=== PATIENT | male | born 1975 | race Caucasian/White ===

== ENCOUNTER 2020-02-11 09:11 | Inpatient (IN) | payer OTHER ==
--- NOTE | 2020-02-09 11:16 | Pre-op HX & Phy Repo 2 SIG ---
DATE OF ADMISSION: 02/11/2020 SCHEDULED TO BE ADMITTED: February 11, 2020. 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 The patient had a past history of ulcerative colitis in May 2013 in [place]. He underwent proctocolectomy with creation of a Sood continent intestinal reservoir. He required revision of the Sood pouch valve and access segment in 2017 because of difficulty with intubation as well as incontinence. For the past year and now getting rapidly progressively worse. The patient is barely able to get his smallest catheter 24-Sammarinese into his pouch instead of his usual 30-Sammarinese catheter. He has bleeding and pain during intubation. He has severe stoma stenosis with hypertrophic scar around the stoma. He also complains of intermittent incontinence of stool. He is scheduled to be admitted, undergo diagnostic Sood pouch endoscopy, bowel prep with intravenous hydration, and preparation for surgery. PAST MEDICAL HISTORY: MEDICATIONS: Lisinopril for hypertension. ALLERGIES: None. OPERATIONS: In addition to the above, he underwent repair of incisional hernia in 2017 and cholecystectomy in 2019. PHYSICAL EXAMINATION: VITAL SIGNS: The patient is 5 feet 7 inches, 185 pounds. [place] and will be examined upon arrival and dictated separately. IMPRESSION: 1. 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 2. History of ulcerative colitis. 3. Hypertension. 4. STATUS POST MULTIPLE ABDOMINAL OPERATIONS: 4.1. Proctocolectomy and creation of Sood continent ileostomy May 2013 in [place]. 4.2. Repair of incisional hernia in 2017 out of state. 4.3. Laparotomy with revision of Sood pouch valve and access segment and stoma in [place] in March 2017. 4.4. Cholecystectomy in 2019 out of state. PLAN: The patient will be admitted and undergo insertion of a dual lumen PICC line for stable venous access prior to this extensive reoperative abdominal surgery. He will undergo pouch endoscopy not requiring anesthesia or sedation to better determine the extent of the surgery. Since he is having incontinence, it is likely there is either a valve fistula or a partially slipped valve in addition to the severe stoma stenosis. The patient will undergo bowel prep with concurrent intravenous hydration and an indwelling Sood pouch catheter will be placed to continuous drainage with antibiotic bowel prep, IV antibiotics started overnight prior to surgery, and preoperative subcutaneous heparin. I have had a full discussion which I will have again in person in detail with the patient when he arrives from out of state about the nature of this problem, the nature of the surgery, indications, alternatives, options, and risks. I have discussed the general risks of surgery including bleeding, infection, adhesions that could lead to bowel obstruction, hernia, the development of deep vein thrombosis despite prophylaxis, possible need for gastrostomy, etc. I have discussed the specific risks of the Sood pouch procedure including recurrent problems with function or structure of the pouch. I have discussed the potential that he need to have this pouch resected and a new pouch created or conventional ileostomy requiring wearing an external appliance. Herber Guerrier M.D. DR: Carmine JOB#: [id number] CC:
[~2020-02-11] VITALS: Ht 170.2 cm; Wt 86.2 kg
--- NOTE | 2020-02-11 09:25 | NUR ---
NURSE NOTES: Patient was admitted to room 304-2 ambulating in stable condition. Pt is a/o x4. Unit orientation was given. Verified belongings list and pt signed. Provided call light. Bed in lowest position, call light within reach. Will continue to monitor.
[2020-02-11 09:26] VITALS: BP 158/105
[2020-02-11] MEDS ORDERED: LISINOPRIL20 MG ORAL (10:00)
[2020-02-11] MEDS ORDERED: PERCOCET 10-321 EAC1 ORAL (10:00)
[2020-02-11] MEDS ORDERED: NEXIUM20 MG ORAL (10:00)
[2020-02-11] MEDS ORDERED: ZOLOFT100 MG ORAL (10:00)
[2020-02-11] MEDS ORDERED: Lidocaine 1% Plain 30 ml INJ PRN (10:15)
[2020-02-11] MEDS ORDERED: Heparin1,000 units/500ml Premix(Conc:2 units/ml) IV PRN (10:15)
--- NOTE | 2020-02-11 10:26 | Diagnostic Imaging Report ---
Procedure: XRAY Chest 1v Reason for study: Cough. Comparison films: None. FINDINGS: A single one view chest is obtained. Vascularity is normal. The lung cervantes are clear bilaterally. Cardiac and mediastinal silhouette are within normal limits. CP angles are sharp. The bony thorax appear unremarkable. IMPRESSION: NO ACUTE CARDIOPULMONARY DISEASE.
[2020-02-11 11:04] LABS: APPEARANCE,URINE CLEAR; BILIRUBIN, URINE NEGATIVE (NEGATIVE); GLUCOSE, URINE (UA) NEGATIVE (NEGATIVE); KETONES,URINE NEGATIVE (NEGATIVE); LEUKOCYTE ESTERASE ,URINE NEGATIVE (NEGATIVE); NITRITE,URINE NEGATIVE (NEGATIVE); PH,URINE 5 (4.5-8.0); PROTEIN,URINE 2+ (NEGATIVE); UROBILINOGEN,URINE NORMAL MG/DL (0.0-1.0)
[2020-02-11 11:07] LABS: COLOR,URINE PALE YELLOW
--- NOTE | 2020-02-11 11:21 | NUR ---
NURSE NOTES: Dr. Guerrier ordered continue all home meds. Noted and carried out.
--- NOTE | 2020-02-11 11:23 | Pre-Procedure Note/Attestation ---
Pre-Procedure Note/Attestation Complete Prior to Procedure Planned Procedure: not applicable Procedure Narrative: Sood continent ileostomy pouch endoscopy Indications for Procedure Pre-Operative Diagnosis: malfunctioning Sood continent ileostomy and stoma stenosis Attestation I attest that I discussed the nature of the procedure; its benefits; risks and complications; and alternatives (and the risks and benefits of such alternatives), prior to the procedure, with the patient (or the patient's legal senior account representative). I attest that, if there was a reasonable possibility of needing a blood transfusion, the patient (or the patient's legal senior account representative) was given the [facility] standardized written summary, pursuant to the Moses Coburn Blood Safety Act ([place] Health and Safety Code # 1645, as amended). I attest that I re-evaluated the patient just prior to the surgery and that there has been no change in the patient's H&P, except as documented below: Herber Guerrier MD Feb 11, 2020 11:23
[2020-02-11 12:00] VITALS: BP 149/93
[2020-02-11] MEDS: Neomycin Sulfate 500mg Tab ORAL SCH ×3 (12:07→20:53)
[2020-02-11 12:26] LABS: EOSINOPHILS % (AUTO) 0.5 % (0.0-3.0); HEMATOCRIT 31.7 % (42.0-52.0); HEMOGLOBIN 10.2 G/DL (14.2-18.0); LYMPHOCYTES % (AUTO) 25.4 % (20.0-45.0); MEAN CORPUSCULAR VOLUME 73 FL (80-99); MONOCYTES % (AUTO) 7.9 % (1.0-10.0); NEUTROPHILS % (AUTO) 65.2 % (45.0-75.0); PLATELET COUNT 397 K/UL (150-450); RED BLOOD COUNT 4.33 M/UL (4.70-6.10); RED CELL DISTRIBUTION WIDTH 17.5 % (11.6-14.8); WHITE BLOOD COUNT 13.8 K/UL (4.8-10.8)
[2020-02-11 12:34] LABS: ANION GAP 7 mmol/L (5-15); BLOOD UREA NITROGEN 24 mg/dL (7-18); CALCIUM 8.7 MG/DL (8.5-10.1); CARBON DIOXIDE 27 MMOL/L (21-32); CHLORIDE 105 MMOL/L (98-107); POTASSIUM 3.6 MMOL/L (3.5-5.1); SODIUM 139 MMOL/L (136-145)
--- NOTE | 2020-02-11 12:40 | NUR ---
NURSE NOTES: Patient is off the unit for Pouch endoscopy and PICC line insertion in stable condition.
[2020-02-11 12:50] LABS: ALANINE AMINOTRANSFERASE 40 U/L (12-78); ALBUMIN 3.7 G/DL (3.4-5.0); ALKALINE PHOSPHATASE 69 U/L (46-116); ASPARTATE AMINO TRANSFERASE 15 U/L (15-37); BILIRUBIN,TOTAL 0.3 MG/DL (0.2-1.0); FERRITIN 5 NG/ML (8-388)
--- NOTE | 2020-02-11 13:33 | Brief Operative Note ---
Immediate Post Operative Note Operative Note Pre-op Diagnosis: malfunctioning Sood continent ileostomy and stoma stenosis Procedure: Sood continent ileostomy pouch endoscopy Post-op Diagnosis: stoma stricture Post-op Diagnosis: same as pre-op Findings: consistent w/pre-op dx studies Surgeon: greg Anesthesia: other - none Specimen: none Complications: none Condition: stable Fluids: none Estimated Blood Loss: none Drains: other - 26 Fr Clifton to Sood pouch Implant(s) used?: No Herber Guerrier MD Feb 11, 2020 13:33
[2020-02-11 13:34] LABS: % IRON SATURATION 3 % (15-50); IRON 15 ug/dL (50-175); TOTAL IRON BINDING CAPACITY 507 ug/dL (250-450)
--- NOTE | 2020-02-11 14:09 | Pre-Procedure Note/Attestation ---
Pre-Procedure Note/Attestation Complete Prior to Procedure Planned Procedure: not applicable Procedure Narrative: PICC line placement Indications for Procedure Pre-Operative Diagnosis: Need IV access Attestation procedure discussed with patient. informed consent obtained Luis Armando Austin M.D. Feb 11, 2020 14:09
--- NOTE | 2020-02-11 14:15 | NUR ---
NURSE NOTES: Pt came back after pouch endoscopy and PICC line insertion in stable condition via hospital bed.
--- NOTE | 2020-02-11 14:55 | Diagnostic Imaging Report ---
Indications: Needs long-term IV access Technique: Ultrasound confirms patent compressible left brachial vein. Total sterile technique, including sterile probe cover and sterile gel, hat, mask,, sterile gown, large sterile drape, and preparation with 2% chlorhexidine utilized. Local anesthesia with 1% lidocaine. Under real-time ultrasound guidance, puncture left brachial vein using 21-gauge needle, documented and archived, passage 0.018 guidewire under direct fluoroscopy, which was used to determine appropriate catheter length, exchange for 4.5 Zimbabwean peel-away sheath. 4 Zimbabwean dual-lumen power PICC cut to appropriate length (43 cm) and it was inserted through the peel-away sheath. Peel-away sheath. Some difficulty was encountered advancing the catheter. Therefore limited venogram was performed imaging patency of the vein however a tortuous course. The catheter was then manipulated across the tortuosity. Tip of the catheter was advanced and guidewire was removed. Catheter fixed to the skin. Both catheter ports aspirated and flushed. Patient tolerated procedure well, without immediate complication. Digital radiograph documents satisfactory catheter tip position, at the cavoatrial junction. Total fluoroscopy time 148.1 seconds. Total fluoroscopy dose 15.52 mGy. To number fluoroscopic runs/images obtained: 2 Impression: Successful placement of PICC under sonographic and fluoroscopic guidance, as described above. Catheter cleared for use.
--- NOTE | 2020-02-11 15:18 | NUR ---
RADIOLOGY NOTE: RIGHT UPPER EXTREMITY PICC LINE PLACEMENT BY DR. VILLAFUERTE
[2020-02-11 16:00] VITALS: BP 150/88
--- NOTE | 2020-02-11 17:15 | Procedure Note ---
DATE OF PROCEDURE: 02/11/2020 ENDOSCOPY PROCEDURE REPORT ENDOSCOPIST: Herber Guerrier MD. ANESTHESIA: None. SEDATION: None. PRE-ENDOSCOPY DIAGNOSES: 1. 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 2. History of ulcerative colitis. 3. Status post proctocolectomy with Sood continent ileostomy in 2013 in [place], followed [place] revision [place] valve[place]. POST-ENDOSCOPY DIAGNOSIS: 1. 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 2. History of ulcerative colitis. 3. Status post proctocolectomy with Sood continent ileostomy in 2013 in [place], followed by revision of valve, access [place]. ENDOSCOPY PERFORMED: Sood continent ileostomy pouch endoscopy. DESCRIPTION OF PROCEDURE: The patient was positioned supine in the GI lab without any anesthesia or sedation given or required. The stoma was very stenotic, but I was able to manipulate the GIF-P140 endoscope into the stoma and access segment. The access segment is slightly redundant, but quite straight to the pouch with the distance from the stoma orifice to the tip of the the valve approximately 12 cm, which in this patient should be 8 or 9 cm. The pouch is distensible. The pouch looks completely normal without any inflammation or ulcerations. Retroflexed views revealed a somewhat foreshortened nipple valve, but the patient is not having any significant incontinence. He only has difficulty intubating at the orifice of the stoma. Withdrawal views confirmed the above findings. After removing the endoscope, I was able to readily insert a 26-Maori Clifton through the stoma and into the pouch decompressed. It was secured with tape to the skin and connected to a gravity drainage bag with a dressing over the stoma. The patient will be prepared for surgical revision of his stenotic Sood continent ileostomy stoma in the morning. He tolerated the endoscopy well. Herber Guerrier M.D. DR: NATHANIEL JOB#: [id number] CC:
--- NOTE | 2020-02-11 17:45 | History and Physical Report ---
DATE OF ADMISSION: 02/11/2020 ADMISSION HISTORY AND PHYSICAL PREOPERATIVE The patient has now arrived from out of state. Please see previously dictated history. PHYSICAL EXAMINATION: GENERAL: He is well developed, well nourished, 5 feet 7 inches, 185 pounds. VITAL SIGNS: Within normal limits. HEENT: Within normal limits. LUNGS: Clear. HEART: Regular rhythm. BREASTS: Without masses. ABDOMEN: Soft, slightly obese. There is a long midline scar. The stoma of his Sood continent ileostomy is low in the right lower quadrant and very stenotic. There is no evidence of incisional or parastomal hernia. GENITALIA: Within normal limits. RECTAL: Status post proctectomy. EXTREMITIES: Without edema. NEUROLOGIC: Physiologic. ADDITIONAL INFORMATION: Laboratory studies revealed the patient is anemic with a hemoglobin of 10.2. His serum iron is only 15. His serum ferritin is 5. His albumin is 3.7. IMPRESSION: 1. 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 2. Hypertension. 3. History of ulcerative colitis. 4. Status post multiple abdominal operations. 4.1. Proctocolectomy and creation of Sood continent ileostomy performed in [place] in May 2013. 4.2. Repair of incisional hernia in [place] in 2016. 4.3. Laparotomy with revision of Sood continent ileostomy valve and access segment and stoma performed in [place] in March 2017. 4.4. Laparoscopic cholecystectomy in 2019 in [place]. PLAN: The patient underwent endoscopy of his Sood continent ileostomy, which reveals normal mucosa, a somewhat deformed nipple valve, and some redundancy of the access segment without angulations. There is a severe recurrent stoma stricture. The patient will undergo insertion of a dual lumen PICC line. An indwelling Sood pouch catheter has been placed to continuous gravity drainage. He will receive intravenous Venofer. He will receive preoperative intravenous antibiotics and preoperative subcutaneous heparin. I have had a full discussion with the patient regarding the nature of his condition and the need for revision of his stoma in depth. I informed him that since he is not having any significant incontinence, only a small amount of yellowish material mixed with mucus coming out of the stoma under his stoma covering, but no evidence of incontinence of flatus or gross incontinence, and because his only difficulty intubating is with the stoma orifice and not further in, I have recommended that we perform a revision of the stoma in depth and hopefully a full laparotomy can be avoided. I have discussed the risks including bleeding, infection, recurrent stenosis, need for additional procedures regarding his pouch, neuritis, or neuralgia from dissecting in the right groin area, etc. All questions have been answered. He understands and agrees to proceed. Herber Guerrier M.D. DR: LAVERNE JOB#: [id number] CC:
[2020-02-11] MEDS: D5 1/2NS w/KCl 20mEq 1,000 ML IV SCH (18:12)
--- NOTE | 2020-02-11 19:17 | NUR ---
NURSE HAND-OFF: Important Events on Shift:Admission Patient Status: stable Diet: clear liquid Pending Orders: n/a Pending Results/Labs:n/a Pending MD notification:n/a Latest Vital Signs: Temperature 97.2 , Pulse 65 , B/P 150 /88 , Respiratory Rate 16 , O2 SAT 99 , , O2 Flow Rate . Vital Sign Comment: stable Latest Wagoner Fall Score: 35 Fall Risk: Medium Risk Safety Measures: Call light Within Reach, Bed Alarm Zone 1, Side Rails Side Rails x2, Bed position Low and Locked. Fall Precautions: Patient Fall Education Report given to JESSICA Soto.
--- NOTE | 2020-02-11 19:53 | NUR ---
NURSE NOTES: Received report from Walter LOPEZ. Patient in bed requesting for pain medication, ileo draining well to gravity. PICC line running well, intact. Reminded patient to be NPO at midnight for procedure tomorrow.
[2020-02-11 20:00] VITALS: BP 154/101
[2020-02-11] MEDS: Dyna-Hex 2% Top Sol 2oz TOPIC SCH (20:53)
[2020-02-11] MEDS: Zolpidem 5mg tab ORAL PRN (21:24)
[2020-02-11] MEDS: Venofer 200mg in NS 110ml IVPB SCH (21:25)
[2020-02-12] VITALS (16 sets, daily range): BP systolic 103–156; BP diastolic 66–111
[2020-02-12] MEDS: Ampicillin/Sulbactam Sod 3 GM in NS 110 ML IVPB SCH ×5 (00:15→23:16)
[2020-02-12] MEDS: D5 1/2NS w/KCl 20mEq 1,000 ML IV SCH (03:15)
[2020-02-12] MEDS ORDERED: Heparin 5000 units/ml inj SUBQ SCH (05:30)
--- NOTE | 2020-02-12 06:36 | Anethesia Preoperative Eval ---
Anesthesia Pre-op PMH/ROS General Date of Evaluation: Feb 12, 2020 Time of Evaluation: 06:21 Anesthesiologist: Kamila ASA Score: ASA 3 Mallampati Score Class I : Soft palate, uvula, fauces, pillars visible Class II: Soft palate, uvula, fauces visible Class III: Soft palate, base of uvula visible Class IV: Only hard plate visible Mallampati Classification: Class II Surgeon: Chey Diagnosis: Malfunctioning Sood Continent Ileostomy Surgical Procedure: Revision of Sood Continent Ileostomy Anesthesia History: none Family History: no anesthesia problems Allergies: Coded Allergies: NO KNOWN ALLERGIES (Verified Allergy, Unknown, 02/11/20) Medications: see eMAR Patient NPO?: Yes Past Medical History Cardiovascular: Reports: HTN Gastrointestinal/Genitourinary: Reports: other - Colitis Hematology/Immune: Reports: anemia Other: obesity - BMI 31 PSxH Narrative: 1. 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 2. History of ulcerative colitis. 3. Hypertension. 4. STATUS POST MULTIPLE ABDOMINAL OPERATIONS: 4.1. Proctocolectomy and creation of Sood continent ileostomy May 2013 in [place]. 4.2. Repair of incisional hernia [place] of state. 4.3. Laparotomy with revision of Sood pouch valve and access segment and stoma in [place] in March 2017. 4.4. Cholecystectomy [place] of state. Anesthesia Pre-op Phys. Exam Physician Exam Last Vital Signs Date Time Temp Pulse Resp B/P (MAP) Pulse Ox O2 Delivery O2 Flow Rate FiO2 02/12/20 04:00 98.0 61 18 131/78 (95) 97 02/11/20 21:00 Room Air Constitutional: NAD Neurologic: CN 2-12 intact Cardiovascular: RRR Respiratory: CTA Gastrointestinal: S/NT/ND Airway Exam Mallampati Score: Class II MO: full ROM: full Teeth: missing, intact Anesthesia Pre-op A/P Labs Hematology Test 02/11/20 12:00 White Blood Count 13.8 K/UL (4.8-10.8) H Red Blood Count 4.33 M/UL (4.70-6.10) L Hemoglobin 10.2 G/DL (14.2-18.0) L Hematocrit 31.7 % (42.0-52.0) L Mean Corpuscular Volume 73 FL (80-99) L Mean Corpuscular Hemoglobin 23.6 PG (27.0-31.0) L Mean Corpuscular Hemoglobin Concent 32.2 G/DL (32.0-36.0) Red Cell Distribution Width 17.5 % (11.6-14.8) H Platelet Count 397 K/UL (150-450) Mean Platelet Volume 6.1 FL (6.5-10.1) L Neutrophils (%) (Auto) 65.2 % (45.0-75.0) Lymphocytes (%) (Auto) 25.4 % (20.0-45.0) Monocytes (%) (Auto) 7.9 % (1.0-10.0) Eosinophils (%) (Auto) 0.5 % (0.0-3.0) Basophils (%) (Auto) 1.0 % (0.0-2.0) Coagulation Test 02/11/20 12:00 Prothrombin Time 11.0 SEC (9.30-11.50) Prothromb Time International Ratio 1.0 (0.9-1.1) Activated Partial Thromboplast Time 23 SEC (23-33) Chemistry Test 02/11/20 12:00 Sodium Level 139 MMOL/L (136-145) Potassium Level 3.6 MMOL/L (3.5-5.1) Chloride Level 105 MMOL/L (98-107) Carbon Dioxide Level 27 MMOL/L (21-32) Anion Gap 7 mmol/L (5-15) Blood Urea Nitrogen 24 mg/dL (7-18) H Creatinine 1.0 MG/DL (0.55-1.30) Estimat Glomerular Filtration Rate > 60 mL/min (>60) Glucose Level 90 MG/DL (74-106) Calcium Level 8.7 MG/DL (8.5-10.1) Iron Level 15 ug/dL (50-175) L Total Iron Binding Capacity 507 ug/dL (250-450) H Percent Iron Saturation 3 % (15-50) L Unsaturated Iron Binding 492 ug/dL (112-346) H Ferritin 5 NG/ML (8-388) L Total Bilirubin 0.3 MG/DL (0.2-1.0) Aspartate Amino Transf (AST/SGOT) 15 U/L (15-37) Alanine Aminotransferase (ALT/SGPT) 40 U/L (12-78) Alkaline Phosphatase 69 U/L (46-116) Total Protein 7.3 G/DL (6.4-8.2) Albumin 3.7 G/DL (3.4-5.0) Globulin 3.6 g/dL Albumin/Globulin Ratio 1.0 (1.0-2.7) Vitamin B12 Level 414 PG/ML (193-986) Folate 13.7 NG/ML (8.6-58.9) Risk Assessment & Plan Assessment: ASA 3 Plan: GA Status Change Before Surgery: No Pre-Antibiotics Drug: Tip Carr MD Feb 12, 2020 06:36
--- NOTE | 2020-02-12 06:42 | NUR ---
NURSE HAND-OFF: Important Events on Shift:Patient NPO since midnight, given percocet x2 for 5/10 pain. total ileo ouput was 695 ml throughout the shift, and urine of 675 mL. Heparin x1 given, patient tolerated procedure well. BP was initially elevated during start of shift, but was well managed throughout the night. consents for procedure today done and prepped. Patient Status: stable Diet: npo midnight Pending Orders: [] Pending Results/Labs:[] Pending MD notification:[] Latest Vital Signs: Temperature 98.0 , Pulse 61 , B/P 131 /78 , Respiratory Rate 18 , O2 SAT 97 , Room Air, O2 Flow Rate . Vital Sign Comment: [] Latest Wagoner Fall Score: 35 Fall Risk: Medium Risk Safety Measures: Call light Within Reach, Bed Alarm Zone 1, Side Rails Side Rails x2, Bed position Low and Locked. Fall Precautions: Patient Fall Education Report given to Oralia LOPEZ
--- NOTE | 2020-02-12 06:56 | NUR ---
NURSE NOTES: Received call from Preop. Verified chart and consents. Prepared antibiotics to be sent to surgery
[2020-02-12] MEDS ORDERED: Succinylcholine 20mg/ml 10ml vial ONE (07:07)
[2020-02-12] MEDS ORDERED: Rocuronium Bromide 50mg/5ml Inj IV ONE (07:07)
--- NOTE | 2020-02-12 07:10 | NUR ---
NURSE NOTES: Patient brought to surgery, brought by OR staff
[2020-02-12] MEDS ORDERED: Lidocaine 1% MPF 10mg/ml 5ml ONE (07:11)
[2020-02-12] MEDS ORDERED: Midazolam 2mg/2ml Inj ONE (07:11)
[2020-02-12] MEDS ORDERED: fentaNYL 100 mcg/2 mL IV ONE (07:11)
--- NOTE | 2020-02-12 07:15 | NUR ---
NURSE NOTES: REPORT RECEIVED FOR PATIENT ALREADY SENT TO SURGERY BY NIGHT RN.
[2020-02-12] MEDS ORDERED: Bacitracin 50000 Units Vial ONE (07:20)
--- NOTE | 2020-02-12 07:22 | NUR ---
NURSE NOTES: Report given to Oralia LOPEZ. Patient is out of the unit
--- NOTE | 2020-02-12 07:26 | Pre-Procedure Note/Attestation ---
Pre-Procedure Note/Attestation Complete Prior to Procedure Planned Procedure: not applicable Procedure Narrative: revision of Sood Continent Ileostomy stoma in depth Indications for Procedure Pre-Operative Diagnosis: Sood continent ileostomy stoma stenosis Attestation I attest that I discussed the nature of the procedure; its benefits; risks and complications; and alternatives (and the risks and benefits of such alternatives), prior to the procedure, with the patient (or the patient's legal teleservices representative). I attest that, if there was a reasonable possibility of needing a blood transfusion, the patient (or the patient's legal teleservices representative) was given the [facility] standardized written summary, pursuant to the Moses Lin Blood Safety Act ([place] Health and Safety Code # 1645, as amended). I attest that I re-evaluated the patient just prior to the surgery and that there has been no change in the patient's H&P, except as documented below:none Herber Guerrier MD Feb 12, 2020 07:26
[2020-02-12] MEDS ORDERED: LR 1000ml ONE (07:30)
[2020-02-12] MEDS ORDERED: NS Irrig 2000ml IRRIG ONE (07:30)
[2020-02-12] MEDS ORDERED: Sterile Water Irrig 1000ml IRRIG ONE (07:30)
[2020-02-12] MEDS ORDERED: NS Irrig 1000ml IRRIG ONE ×2 (07:47→08:06)
[2020-02-12] MEDS ORDERED: Morphine Sulfate 10mg/ml Inj ONE (08:08)
[2020-02-12] MEDS ORDERED: Sodium Chloride 10ml vial INJ ONE (08:09)
[2020-02-12] MEDS ORDERED: DiphenhydrAMINE 50mg/ml Inj IVP PRN (08:15)
[2020-02-12] MEDS ORDERED: Hydromorphone 0.5mg/0.5ml inj IVP PRN (08:15)
[2020-02-12] MEDS ORDERED: LR 1000ml 1,000 ML IVLG SCH (08:15)
[2020-02-12] MEDS ORDERED: Ketorolac 30mg Inj ONE (08:21)
--- NOTE | 2020-02-12 08:43 | Brief Operative Note ---
Immediate Post Operative Note Operative Note Pre-op Diagnosis: Sood continent ileostomy stoma stenosis Procedure: Sood continent ileostomy stoma revision in depth Post-op Diagnosis: Sood continent ileostomy stoma stenosis Post-op Diagnosis: same as pre-op Findings: consistent w/pre-op dx studies Surgeon: greg Systems Checkout Mechanic: elaina Anesthesiologist: kenia Anesthesia: general Specimen: yes - stoma stricture Complications: none Condition: stable Fluids: see anesthesia record Estimated Blood Loss: minimal Drains: other - 28 Clifton to Sood Pouch Implant(s) used?: No Herber Guerrier MD Feb 12, 2020 08:43
[2020-02-12] MEDS ORDERED: Rate Change PCA 1 Each MISC PRN (08:45)
[2020-02-12] MEDS ORDERED: PCA HYDROmorphone 1mg/ml 30 ML IV PRN (08:45)
[2020-02-12] MEDS ORDERED: LORazepam 1mg tab ORAL PRN (08:45)
[2020-02-12] MEDS ORDERED: PCA Education Pamphlet MISC ONE (08:45)
[2020-02-12] MEDS ORDERED: Naloxone 0.4mg/ml Inj IVP PRN (08:45)
--- NOTE | 2020-02-12 08:55 | Immediate Post-Op Evaluation ---
Immediate Post-Op Evalulation Immediate Post-Op Evalulation Procedure: Revision of continent pouch stoma Date of Evaluation: Feb 12, 2020 Time of Evaluation: 08:54 IV Fluids: 500 Blood Products: none Estimated Blood Loss: min Urinary Output: none Blood Pressure Systolic: 134 Blood Pressure Diastolic: 84 Pulse Rate: 86 Respiratory Rate: 20 O2 Sat by Pulse Oximetry: 99 Temperature (Fahrenheit): 98.2 Pain Score (1-10): 3 Nausea: No Vomiting: No Complications none Patient Status: awake, patent, none Hydration Status: adequate Ferny Goodman MD Feb 12, 2020 08:55
--- NOTE | 2020-02-12 09:45 | Operative Note - Dictated ---
DATE OF OPERATION: 02/12/2020 SURGEON: Herber Guerrier MD WEB MARKETING SPECIALIST: Drake Ingram MD ANESTHESIOLOGIST: Ferny Goodman MD TYPE OF ANESTHESIA: General. PREOPERATIVE DIAGNOSES: 1. Sood continent ileostomy severe stoma stenosis. 2. History of ulcerative colitis. 3. Status post multiple abdominal operations. 3.1. Proctocolectomy with creation of Sood continent ileostomy in May 2013 in [place]. 3.2. Repair of incisional hernia in 2017. 3.3. Laparotomy with revision of Sood pouch valve and access segment and stoma performed in [place] in March 2017. 3.4. Cholecystectomy in 2019. POSTOPERATIVE DIAGNOSES: 1. Sood continent ileostomy severe stoma stenosis. 2. History of ulcerative colitis. 3. Status post multiple abdominal operations. 3.1. Proctocolectomy with creation of Sood continent ileostomy in May 2013 in [place]. 3.2. Repair of incisional hernia in 2016. 3.3. Laparotomy with revision of Sood pouch valve and access segment and stoma performed in [place] in March 2017. 3.4. Cholecystectomy in 2019. OPERATION PERFORMED: Revision of Sood continent ileostomy stoma stenosis in depth. DESCRIPTION OF PROCEDURE: The patient was taken to the operating room and under general anesthesia with sequential compression device stockings in place and having received preoperative intravenous antibiotics, the patient was prepped and draped in usual fashion. A transversely oriented elliptical incision was made around the stoma, which was located very low in the right lower quadrant. The edges were grasped with Allis clamps. A circumferential dissection was performed below the anterior rectus fascia so that enough access segment could be elevated without tension to the skin for the new stoma. Hemostasis was carefully achieved with cautery. The field was irrigated with antibiotic solution. The medial aspect of the incision was narrowed with 2 subcuticular sutures of 4-0 Monocryl. A 28-Hong Konger Clifton catheter went readily through the stoma into the pouch and it was maintained within the pouch to facilitate the dissection. Now the elevated, redundant and very scarred access segment and stoma was excised and the new stoma matured with continuous 2-0 chromic locking sutures starting at the 3 and 9 o'clock positions. A very satisfactory wide-open stoma was achieved. The 28-Hong Konger Clifton catheter went readily into the pouch confirmed by irrigation. It was appropriately positioned and sutured to the skin with two sutures of 2-0 silk. It was flushed and connected to a gravity drainage bag. Dry sterile dressings were applied. Final sponge and needle counts were correct. The patient tolerated the procedure well, left the operating room in good condition. Herber Guerrier M.D. DR: LAVERNE JOB#: [id number] CC:
--- NOTE | 2020-02-12 10:00 | NUR ---
NURSE NOTES: PATIENT RETURNED FROM SURGERY ON BED. AOX4.O2 ON VIA NC WITH ETCO2 IN PLACE. RR EVENLY SPACED. COPY MESSENGER ATTACHED TO MARICARMEN PICC SECURED AND PATENT. PATIENT DEMONSTRATES HOW TO USE COPY MESSENGER. PAIN MODERATELY RELIEVED WITH COPY MESSENGER. ILEOSTOMY SITE W/ DRSG C/D/I AND MEDIA THEORIST AND AUTHOR OF TO MALDONADO BAG. OUTPUT THIN AND GREEN IN COLOR. SCDS ON. VSS. AFEBRILE. BEDSIDE REPORT RECEIVED. BED IN LOW AND LOCKED POSITION. PERSONAL ITEMS AND CALL LIGHT WITHIN ARM'S REACH. BED ALARM ACTIVATED. WILL CONTINUE TO MONITOR CLOSELY.
[2020-02-12] MEDS: Sertraline 100mg tab ORAL SCH (10:28)
[2020-02-12] MEDS: D5 1/4NS w/KCl 20mEq 1,000 ML IV SCH ×3 (10:28→23:16)
[2020-02-12] MEDS: Lisinopril 20mg tab ORAL SCH (10:28)
[2020-02-12] MEDS ORDERED: Ampicillin/Sulbactam Sod 3 GM in NS 110 ML IV SCH (12:00)
--- NOTE | 2020-02-12 12:18 | NUR ---
SENIOR INTERNET SALES CONSULTANTLEAD PRESSER 44 YO MALE FROM HOME TO SURGERY SI: MALFUNCTION OF BOWERS POUCH S/P Bowers continent ileostomy pouch endoscopy T. 97.6 HR 83 RR 17 B/P 133/46 3L NC O2 SAT @ 98% WBC 13.8 CXR= NO ACUTE DISEASE IS: DILAUDID MINE EQUIPMENT DESIGN ENGINEER AMPICILLIN IV FLAGYL IV IRON IV ADMITTED TO MED/SURG DCP RETURN HOME
[2020-02-12] MEDS: DiphenhydrAMINE 50mg/ml Inj IVP PRN ×2 (14:21→21:47)
[2020-02-12] MEDS ORDERED: LORazepam 1mg tab SL SCH (14:30)
--- NOTE | 2020-02-12 14:30 | NUR ---
NURSE NOTES: PATIENT REQUESTING BENADRYL 5MG IVP; GIVEN. PATIENT CONNECTED TO SEMICONDUCTORS WAFER BREAKER. NOTED HR 138-144 SUSTAINED. RADIAL PULSE CONFIRMED ELEVATED HEART RATE. PATIENT DISPLAYS ANXIETY. STATES HE HAS SUFFERED FROM ANXIETY IN THE PAST.DENIES SEVERE SURGICAL PAIN. STATES PAIN 3/10 ON PAIN SCALE. ILEOSTOMY CONNECTION PATENT AND SECURED. NOTED SOME BREAKTHROUGH BLEEDING TO ILEOSTOMY SITE. PLACED CALL TO DR. STONE; NEW ORDERS RECEIVED. PATIENT MADE AWARE. Addendum: 02/12/20 at 1640 by RAMIRO SILVA RN NURSE NOTES: ADDENDUM BENADRYL 50 MG IVP GIVEN.
--- NOTE | 2020-02-12 15:00 | NUR ---
NURSE NOTES: ADMINISTERED ATIVAN 1 MG SL. HR 120'S. STAT EKG ORDERED AND OBTAINED. ST NOTED. PLACED CALL TO DR. STONE TO REPORT EKG AND PATIENT UNABLE TO VOID. ATTEMPTED FOR 40 MINS BUT UNSUCCESSFUL. BLADDER SCAN DONE; 72 MLS NOTED; CHECKED TWICE. PATIENT STATES THEY DON'T FEEL FULL.
--- NOTE | 2020-02-12 17:00 | NUR ---
NURSE NOTES: PATIENT MORE CALM. RESTING IN BED HR 110. RR 18. PAIN CONTROLLED. BED IN LOW AND LOCKED POSITION, CALL LIGHT WITHIN REACH. HAD EMESIS OF 800 MLS OF STRAW COLORED WHICH LOOKS LIKE THE LARGE APPLE JUICE PATIENT DRANK PREVIOUSLY.
[2020-02-12] MEDS ORDERED: Sodium Chloride 550 ML IV SCH (18:00)
--- NOTE | 2020-02-12 18:07 | NUR ---
NURSE NOTES: PATIENT STILL UNABLE TO VOID. DR. STONE UPDATED. NEW ORDERS GIVEN. ADMINISTERING NS 500 CC @ 150 ML/HR/
[2020-02-12] MEDS: PCA shift volume MISC SCH (19:20)
--- NOTE | 2020-02-12 19:32 | NUR ---
NURSE HAND-OFF: Important Events on Shift:ELEVATED HR 130'140'S SUSTAINED, EKG DONE SHOWS SINUS TACHYCARDIA, UNABLE TO VOID BLADDER SCAN 72 MLS, NS 500 CC BOLUS INFUSING. Patient Status: STABLE Diet: SIPS OF CLEARS Pending Orders: N/A Pending Results/Labs:N/A Pending MD notification: IF AND WHEN PATIENT VOIDS. Latest Vital Signs: Temperature 97.8 , Pulse 100 , B/P 119 /79 , Respiratory Rate 18 , O2 SAT 97 , Nasal Cannula, O2 Flow Rate 1.0 . Vital Sign Comment: INTERMITTENT ELEVATED HEART RATE. Latest Wagoner Fall Score: 50 Fall Risk: High Risk Safety Measures: Call light Within Reach, Bed Alarm Zone 1, Side Rails Side Rails x3, Bed position Low and Locked. Fall Precautions: Door Sign Patient Fall Education Report given to MARCUS Ramírez RN.
--- NOTE | 2020-02-12 19:47 | NUR ---
NURSE NOTES: Received report from Oralia LOPEZ. Upon rounding, patient was attempting to void. Patient still very anxious, patient has not voided yet, Still unsuccessful. Dressing on the site was a little stained with serosanguinous drainage. Will change dressing, will continue to monitor
[2020-02-12] MEDS: Dyna-Hex 2% Top Sol 2oz TOPIC SCH (20:15)
[2020-02-12] MEDS: Venofer 200mg in NS 110ml IVPB SCH (20:16)
--- NOTE | 2020-02-12 20:33 | NUR ---
NURSE NOTES: Gave dr garza a call in regards to patient voiding 50 mLs only, received orders and documented, will carry on orders
[2020-02-12] MEDS: Zolpidem 5mg tab ORAL PRN (21:47)
--- NOTE | 2020-02-12 21:50 | NUR ---
NURSE NOTES: Patient voided about 250 mLs, documented in nursing notes, patient does not report any fullness in the bladder. He mentioned that "my bladder is fully empty".
[2020-02-13] VITALS: BP 113/60
[2020-02-13 04:00] VITALS: BP_SYST 119; BP_DIAS 60; BP_DIAS 69
[2020-02-13] MEDS: Ampicillin/Sulbactam Sod 3 GM in NS 110 ML IVPB SCH ×3 (05:04→18:22)
[2020-02-13] MEDS: DiphenhydrAMINE 50mg/ml Inj IVP PRN ×3 (05:30→21:18)
[2020-02-13 06:12] LABS: BASOPHILS % (AUTO) 1.3 % (0.0-2.0); EOSINOPHILS % (AUTO) 2.2 % (0.0-3.0); HEMATOCRIT 28.9 % (42.0-52.0); HEMOGLOBIN 9.3 G/DL (14.2-18.0); MEAN CORPUSCULAR VOLUME 73 FL (80-99); MONOCYTES % (AUTO) 11.8 % (1.0-10.0); NEUTROPHILS % (AUTO) 68.7 % (45.0-75.0); PLATELET COUNT 354 K/UL (150-450); RED BLOOD COUNT 3.94 M/UL (4.70-6.10); WHITE BLOOD COUNT 11.3 K/UL (4.8-10.8)
[2020-02-13 06:29] LABS: ANION GAP 7 mmol/L (5-15); BLOOD UREA NITROGEN 17 mg/dL (7-18); CALCIUM 8.4 MG/DL (8.5-10.1); CARBON DIOXIDE 25 MMOL/L (21-32); CHLORIDE 106 MMOL/L (98-107); POTASSIUM 3.8 MMOL/L (3.5-5.1); SODIUM 138 MMOL/L (136-145)
[2020-02-13] MEDS: PCA shift volume MISC SCH ×2 (07:00→19:28)
--- NOTE | 2020-02-13 07:03 | NUR ---
NURSE HAND-OFF REPORT: Important Events on Shift:Patient was able to void fine throughout the night, urine output was dark clyde color, total urine output was 630 mL. Ileo output was 220 mLs, green liquid. Patient comfortable with PAINTER SUPERVISOR and PRN benadryl. Patient able to get up and use bathroom. no N/V throughout the night Patient Status: stable Diet: clear liquid diet Pending Orders: [] Pending Results/Labs:[] Pending MD notification:[] Latest Vital Signs: Temperature 99.0 , Pulse 97 , B/P 119 /60 , Respiratory Rate 16 , O2 SAT 97 , Nasal Cannula, O2 Flow Rate 2.0 . Vital Sign Comment: [] EKG Rhythm: Sinus Rhythm Rhythm change?: MD Notified?: - MD Response: Latest Wagoner Fall Score: 35 Fall Risk: Medium Risk Safety Measures: Call light Within Reach, Bed Alarm Zone 1, Side Rails Side Rails x2, Bed position Low and Locked. Fall Precautions: Patient Fall Education Report given to Alea LOPEZ
[2020-02-13 08:00] VITALS: BP 112/77
--- NOTE | 2020-02-13 08:12 | NUR ---
NURSE NOTES: Received report from Timoteo LOPEZ. Patient is awake and oriented, in no distress, reporting mild surgical site pain 2/10, ileo to gravity drainage. Patient on NAVAL DESIGNER, settings checked and verified against order, pain well managed with NAVAL DESIGNER at this time. ALEX PICC intact, running IVF per order, dressing clean and dry. Patient on clear liquid diet and tolerating well. Patient updated on plan of care. Side rails upx2, bed low and locked, call light within reach.
[2020-02-13] MEDS ORDERED: Naloxone 0.4mg/ml Inj IVP PRN (08:28)
[2020-02-13] MEDS ORDERED: PCA HYDROmorphone 1mg/ml 30 ML IV PRN (08:30)
--- NOTE | 2020-02-13 08:34 | General Progress Note ---
Progress Note Progress Note AVSS but yesterday post-op tachycardia 138 with stable BP and anxiety. Stablilized and feels fine. Pain controlled with dilaudid IRRIGATION FOREMAN - had been taking Percocet 10mg TID at home. has been out of bed. Had large emesis yesterday Abdomen soft, stoma pink with indwelling 28 Clifton to Sood pouch overnight 12 hours: URINE 630 BCIR ileo 220 enteric WBC 11,300 Hgb 9.3 (was 10.2 on admission) BUN 17 down from 24 on admission Cr 1.0 Imp: Stable Plan: BCIR low residue diet If tolerates po intake will d/c IV fluids but continue IV antibiotics d/c continuous basal infusion of Dilaudid IRRIGATION FOREMAN Maintain continuous drainage of Sood Pouch Herber Guerrier MD Feb 13, 2020 08:34
[2020-02-13] MEDS ORDERED: NS 500ML ONE (08:43)
[2020-02-13] MEDS ORDERED: Tubing IV Secondary IV ONE (08:43)
[2020-02-13] MEDS ORDERED: LORazepam 1mg tab ORAL PRN (08:45)
[2020-02-13] MEDS: Sertraline 100mg tab ORAL SCH (09:15)
[2020-02-13] MEDS: Lisinopril 20mg tab ORAL SCH (09:15)
--- NOTE | 2020-02-13 11:00 | NUR ---
NURSE NOTES: Patient had episode of nausea followed by 50mL of emesis, administered Zofran PRN. Patient reporting relief from nausea, no further emesis.
[2020-02-13 12:00] VITALS: BP 135/80
[2020-02-13] MEDS: D5 1/4NS w/KCl 20mEq 1,000 ML IV SCH (12:22)
--- NOTE | 2020-02-13 13:49 | NUR ---
CASE MANAGEMENT:REVIEW SI;BOWERS POUCH MALFUNCTION 99.0 98 18 119/69 95% ON RA WBC 11.3 H/H 9.3/28.9 IS;DILAUDID IV MOBILE UI DESIGNER BENADRYL IV Q4 IVF D5W @ 100 ML/HR PROTONIX PO QD AMPICILLIN Na/SULBACTAM Na/NS IV Q6 FLAGYL IV Q6 VENOFER IV QD ZOFRAN IV Q4 PRN MED SURG STATUS DCP;FROM HOME PLAN; MAINTAIN CONTINUOUS DRAINAGE OF BOWERS POUCH
--- NOTE | 2020-02-13 14:45 | NUR ---
INSURANCE CLINICALS/REVIEWS/ FAXED [facility] (02/10-02/12) PH#[phone] FAX#[phone]
[2020-02-13 16:00] VITALS: BP 127/79
--- NOTE | 2020-02-13 18:00 | NUR ---
NURSE NOTES: Total ileo output: +790mL Total urine output: 1325mL Patient had no further episodes of N/V after this AM, tolerating diet well, pain well managed, adequate PO intake. Patient was encouraged to ambulate.
--- NOTE | 2020-02-13 19:30 | NUR ---
NURSE HAND-OFF: Important Events on Shift: BCIR diet, tolerating well, ambulated. Had one episode of emesis in AM, now resolved. Patient Status: stable Diet: BCIR Pending Orders: N/A Pending Results/Labs: N/A Pending MD notification: N/A Latest Vital Signs: Temperature 98.9 , Pulse 95 , B/P 127 /79 , Respiratory Rate 16 , O2 SAT 95 , Room Air. Vital Sign Comment: VS stable Latest Wagoner Fall Score: 35 Fall Risk: Medium Risk Safety Measures: Call light Within Reach, Bed Alarm Zone 1, Side Rails Side Rails x2, Bed position Low and Locked. Fall Precautions: Patient Fall Education Report given to Renetta LOPEZ.
--- NOTE | 2020-02-13 19:45 | NUR ---
NURSE NOTES: Received report from Alea LOPEZ. Patient is awake, alert, and oriented x4 in no distress noted. Breathing is even and unlabored. Patient verbalized 2/10 pain on surgical site. PICC line left upper arm dressing intact with no bleeding noted. IVF running as ordered. CAR SHAKEOUT OPERATOR setting checked and verified against order. Patient is well tolerating BCIR low residual diet. Bed low and locked. Call light within reach.
[2020-02-13 20:00] VITALS: BP 149/85
[2020-02-13] MEDS: Dyna-Hex 2% Top Sol 2oz TOPIC SCH (21:03)
[2020-02-13] MEDS: Venofer 200mg in NS 110ml IVPB SCH (21:04)
[2020-02-13] MEDS: Zolpidem 5mg tab ORAL PRN (21:17)
[2020-02-14] MEDS: Ampicillin/Sulbactam Sod 3 GM in NS 110 ML IVPB SCH ×4 (00:17→18:42)
[2020-02-14 06:10] LABS: BASOPHILS % (AUTO) 0.7 % (0.0-2.0); EOSINOPHILS % (AUTO) 3.7 % (0.0-3.0); HEMATOCRIT 28.2 % (42.0-52.0); HEMOGLOBIN 9.5 G/DL (14.2-18.0); LYMPHOCYTES % (AUTO) 10.9 % (20.0-45.0); MEAN CORPUSCULAR VOLUME 71 FL (80-99); MONOCYTES % (AUTO) 9.2 % (1.0-10.0); NEUTROPHILS % (AUTO) 75.6 % (45.0-75.0); PLATELET COUNT 332 K/UL (150-450); RED CELL DISTRIBUTION WIDTH 17.8 % (11.6-14.8); WHITE BLOOD COUNT 12.2 K/UL (4.8-10.8)
--- NOTE | 2020-02-14 06:40 | NUR ---
NURSE NOTES: Urine output - 2,285 Ileo output - 370
--- NOTE | 2020-02-14 06:41 | NUR ---
NURSE HAND-OFF: Important Events on Shift:ABX, pain management with FILM LIBRARIAN Patient Status: Stable Diet: BCIR low residue Pending Orders: N/A Pending Results/Labs:N/A Pending MD notification:N/A Latest Vital Signs: Temperature 98.0 , Pulse 96 , B/P 149 /85 , Respiratory Rate 18 , O2 SAT 97 , Room Air, O2 Flow Rate 2.0 . Vital Sign Comment: VS stable Latest Wagoner Fall Score: 35 Fall Risk: Medium Risk Safety Measures: Call light Within Reach, Bed Alarm Zone 1, Side Rails Side Rails x2, Bed position Low and Locked. Fall Precautions: Patient Fall Education Report will be given to Del LOPEZ.
[2020-02-14 07:24] LABS: ALANINE AMINOTRANSFERASE 45 U/L (12-78); ALBUMIN 3.4 G/DL (3.4-5.0); ALKALINE PHOSPHATASE 70 U/L (46-116); ANION GAP 6 mmol/L (5-15); ASPARTATE AMINO TRANSFERASE 24 U/L (15-37); BILIRUBIN,TOTAL 0.4 MG/DL (0.2-1.0); BLOOD UREA NITROGEN 7 mg/dL (7-18); CALCIUM 8.6 MG/DL (8.5-10.1); CARBON DIOXIDE 28 MMOL/L (21-32); CHLORIDE 103 MMOL/L (98-107); CREATININE 0.8 MG/DL (0.55-1.30); POTASSIUM 3.9 MMOL/L (3.5-5.1); SODIUM 137 MMOL/L (136-145)
[2020-02-14] MEDS: PCA shift volume MISC SCH (07:35)
--- NOTE | 2020-02-14 07:45 | NUR ---
NURSE NOTES: Pt lying in bed w/bed in lowest position and call light/PATROL COMMANDER button within reach. Pt A&Ox4, VSS, and in no apparent distress; pt states pain level is 1-2/10 and manageable. ALEX PICC line intact/asymptomatic; ileo patent/flushing; and surgical dressing C/D/I. Will continue to monitor.
[2020-02-14 08:00] VITALS: BP 144/83
--- NOTE | 2020-02-14 08:46 | General Progress Note ---
Progress Note Progress Note AVSS Feeling well with much less pain Abdomen soft, stoma pink and healing nicely WBC still elevated mildly Imp: Stable Plan: d/c PUPPET MAKER - resume po percocet 10/325 prn continue IV antibiotics maintain indwelling Sood pouch catheter f/u labs Herber Guerrier MD Feb 14, 2020 08:46
[2020-02-14] MEDS: Lisinopril 20mg tab ORAL SCH (08:58)
[2020-02-14] MEDS: Sertraline 100mg tab ORAL SCH (08:58)
[2020-02-14] MEDS: LORazepam 1mg tab SL PRN (11:21)
--- NOTE | 2020-02-14 11:44 | NUR ---
CASE MANAGEMENT:REVIEW SI;BOWERS POUCH MALFUNCTION POD #2 Bowers continent ileostomy stoma revision in depth 98.2 94 18 144/83 99% ON RA WBC 12.2 H/H 9.5/28.2 IS;PERCOCET PO Q4 PRN PROTONIX PO QD LISINOPRIL OP QD AMPICILLIN/SULBACTAM IV Q6 FLAGYL IV Q6 VENOFER IV QD ZOFRAN IV Q4 PRN MED SURG STATUS DCP;PATIENT IS FROM HOME PLAN; continue IV antibiotics maintain indwelling Bowers pouch catheter f/u labs
[2020-02-14 12:00] VITALS: BP 143/77
[2020-02-14] MEDS ORDERED: HYDROXYZINE HCL25 M1 PO (14:07)
[2020-02-14 16:00] VITALS: BP 138/92
--- NOTE | 2020-02-14 17:19 | NUR ---
insurance CLINICALS/REVIEWS/ FAXED [facility] PH#[phone] FAX#[phone]
--- NOTE | 2020-02-14 19:30 | NUR ---
NURSE NOTES: Receive a report from JESSICA Mathis.
--- NOTE | 2020-02-14 19:31 | NUR ---
NURSE HAND-OFF: Important Events on Shift: ASSISTANT GOLF PROFESSIONAL Dilaudid D/C'd; pt ambulated around unit once during shift. Patient Status: Stable Diet: BCIR low residue Pending Orders: None Pending Results/Labs: None Pending MD notification: None Latest Vital Signs: Temperature 97.3 , Pulse 102 , B/P 138 /92 , Respiratory Rate 18 , O2 SAT 98 , Room Air, O2 Flow Rate 2.0 . Vital Sign Comment: Stable Latest Wagoner Fall Score: 35 Fall Risk: Medium Risk Safety Measures: Call light Within Reach, Bed Alarm Zone 1, Side Rails Side Rails x2, Bed position Low and Locked. Fall Precautions: Patient Fall Education Report given to JESSICA Adler.
[2020-02-14 20:00] VITALS: BP 136/78
--- NOTE | 2020-02-14 20:00 | NUR ---
NURSE NOTES: Pt is awake and alert. No N/V noted. Pain level is 2/10, tolerating. Noted gas in ileostomy bag. Encourage ambulation. Surgical dressing site kept dry and intact. PICC is on ALEX for IV ATB usage. Noted old blood oozing on PICC site. Will change dressing. Remain afebrile. Call light within reach. Will continue to monitor.
[2020-02-14] MEDS: Zolpidem 5mg tab ORAL PRN (20:45)
[2020-02-14] MEDS: Dyna-Hex 2% Top Sol 2oz TOPIC SCH (20:45)
[2020-02-14] MEDS: Venofer 200mg in NS 110ml IVPB SCH (21:32)
[2020-02-15] MEDS: Ampicillin/Sulbactam Sod 3 GM in NS 110 ML IVPB SCH ×5 (00:07→23:49)
[2020-02-15] MEDS: LORazepam 1mg tab SL PRN (03:10)
[2020-02-15 04:00] VITALS: BP 132/85
--- NOTE | 2020-02-15 06:00 | NUR ---
NURSE NOTES: After pt got Ativan for anxiety, pt had some sleep. No N/V noted. Percocet 10/325 is given for pain. Dressing change done on ALEX PICC. Site is clean. Will continue to monitor. 12hr output Urine: 860ml Ileostomy: 170ml with lots of gas
[2020-02-15 06:10] LABS: BASOPHILS % (AUTO) 0.5 % (0.0-2.0); EOSINOPHILS % (AUTO) 4.1 % (0.0-3.0); HEMATOCRIT 29.7 % (42.0-52.0); HEMOGLOBIN 9.9 G/DL (14.2-18.0); LYMPHOCYTES % (AUTO) 11.4 % (20.0-45.0); MEAN CORPUSCULAR VOLUME 73 FL (80-99); MONOCYTES % (AUTO) 9.1 % (1.0-10.0); NEUTROPHILS % (AUTO) 74.9 % (45.0-75.0); PLATELET COUNT 346 K/UL (150-450); RED BLOOD COUNT 4.09 M/UL (4.70-6.10); RED CELL DISTRIBUTION WIDTH 17.3 % (11.6-14.8); WHITE BLOOD COUNT 12.1 K/UL (4.8-10.8)
[2020-02-15 06:28] LABS: ANION GAP 8 mmol/L (5-15); BLOOD UREA NITROGEN 9 mg/dL (7-18); CALCIUM 8.6 MG/DL (8.5-10.1); CARBON DIOXIDE 25 MMOL/L (21-32); CHLORIDE 106 MMOL/L (98-107); CREATININE 0.9 MG/DL (0.55-1.30); POTASSIUM 3.8 MMOL/L (3.5-5.1); SODIUM 139 MMOL/L (136-145)
--- NOTE | 2020-02-15 07:40 | NUR ---
NURSE HAND-OFF: Important Events on Shift: Ativan x1 for anxiety, Percocet x1 for pain. Patient Status: [stable] Diet: [BCIR] Pending Orders: [] Pending Results/Labs:[] Pending MD notification:[] Latest Vital Signs: Temperature 98.2 , Pulse 92 , B/P 132 /85 , Respiratory Rate 18 , O2 SAT 96 , Room Air, O2 Flow Rate 2.0 . Vital Sign Comment: [] Latest Wagoner Fall Score: 35 Fall Risk: Medium Risk Safety Measures: Call light Within Reach, Bed Alarm Zone 1, Side Rails Side Rails x2, Bed position Low and Locked. Fall Precautions: Patient Fall Education Report given to JESSICA Harvey.
--- NOTE | 2020-02-15 07:45 | NUR ---
NURSE NOTES: Patient lying in bed awake. Complain of pain 1/10 on abdomen area. Will continue to monitor. Surgical dressing intact and dry. PICC line dressing intact and dry. Bed lowest position. Call light within reach. Will continue to monitor.
[2020-02-15 08:00] VITALS: BP 129/84
--- NOTE | 2020-02-15 08:25 | General Progress Note ---
Progress Note Progress Note AVSS Abdomen soft, stoma healing nicely WBC still elevated 12,100 Hgb 9.9 - receiving Venofer 200mg IV daily Urine 2960 BCIR ileo 1040 Imp: Healing stoma revision Plan: continue IV antibiotics additional 24 hours; continue Venofer (received 800mg so far) maintain indwelling BCIR pouch catheter to drainage Herber Guerrier MD Feb 15, 2020 08:25
[2020-02-15] MEDS: Sertraline 100mg tab ORAL SCH (09:29)
[2020-02-15] MEDS: Lisinopril 20mg tab ORAL SCH (09:29)
[2020-02-15] MEDS ORDERED: NS Irrig 1000ml ONE (09:48)
[2020-02-15] MEDS ORDERED: Tubing IV Secondary IV ONE (09:48)
[2020-02-15] MEDS ORDERED: NS 275ml ONE (09:48)
--- NOTE | 2020-02-15 09:49 | NUR ---
NURSE NOTES: Spoke to regarding discharge tomorrow and Received new Rapid COVID test order. Order noted and carried out. Spoke to Nursing load out supervisor regarding Rapid COVID test and nursing load out supervisor will contact for approval.
[2020-02-15] MEDS ORDERED: Fluconazole 150mg tab ORAL SCH (10:00)
--- NOTE | 2020-02-15 11:32 | NUR ---
CASE MANAGEMENT:REVIEW SI;ROBINSON POUCH MALFUNCTION POD #3 Robinson continent ileostomy stoma revision in depth 98.2 93 18 132/85 96% ON RA WBC 12.1 H/H 9.9/29.7 IS;DIFLUCAN PO ONCE PERCOCET PO Q4 PRN ATIVAN SL Q4 PRN AMPICILLIN/SULBACTAM IV Q6 VENOFER IV QD LISINOPRIL PO QD FLAGYL IV Q6 MED SURG STATUS DCP;FROM HOME PLAN; continue IV antibiotics additional 24 hours; continue Venofer (received 800mg so far) maintain indwelling BCIR pouch catheter to drainage
[2020-02-15 12:00] VITALS: BP 127/78
--- NOTE | 2020-02-15 15:52 | NUR ---
insurance CLINICALS/REVIEWS/ FAXED [facility] PH#[phone] FAX#[phone]
[2020-02-15 16:00] VITALS: BP 134/91
--- NOTE | 2020-02-15 16:29 | NUR ---
NURSE NOTES: COVID test specimen collect and sent to lab.
--- NOTE | 2020-02-15 19:30 | NUR ---
NURSE HAND-OFF: Important Events on Shift: D/C supply given, 02/14 COVID negative Patient Status: Stable Diet: BCIR low residue diet Pending Orders: N/A Pending Results/Labs: CBC, BMP on 02/15 Pending MD notification: N/A Latest Vital Signs: Temperature 98.9 , Pulse 101 , B/P 134 /91 , Respiratory Rate 18 , O2 SAT 97 , Room Air, O2 Flow Rate 2.0 . Vital Sign Comment: Stable Latest Wagoner Fall Score: 35 Fall Risk: Medium Risk Safety Measures: Call light Within Reach, Bed Alarm Zone 1, Side Rails Side Rails x2, Bed position Low and Locked. Fall Precautions: Door Sign Patient Fall Education Report given to Stanleyo RN. Patient in stable condition.
--- NOTE | 2020-02-15 19:30 | NUR ---
NURSE NOTES: Receive a report from JESSICA Harvey.
--- NOTE | 2020-02-15 19:35 | NUR ---
NURSE NOTES: Pt is awake and alert. After pain medication earlier, pt feels comfortable. Request for a sleeping pill. No N/V/bloating noted. Noted decreased gas on ileostomy bag from yesterday. Ileostomy is drained with gravity q3hr flushing. PICC on ALEX is intact. Pt is planning on discharge tomorrow. Discharge supplies are at bed side. Plans of care has been discussed. Call light within reach. Will continue to monitor.
[2020-02-15 20:00] VITALS: BP 143/91
[2020-02-15] MEDS: Dyna-Hex 2% Top Sol 2oz TOPIC SCH (20:42)
[2020-02-15] MEDS: Zolpidem 5mg tab ORAL PRN (20:42)
[2020-02-15] MEDS: Venofer 200mg in NS 110ml IVPB SCH (20:51)
[2020-02-16] MEDS: LORazepam 1mg tab SL PRN (00:25)
[2020-02-16 04:35] VITALS: BP 118/81
[2020-02-16 05:42] LABS: BASOPHILS % (AUTO) 0.9 % (0.0-2.0); EOSINOPHILS % (AUTO) 5.2 % (0.0-3.0); HEMATOCRIT 29.3 % (42.0-52.0); MEAN CORPUSCULAR VOLUME 71 FL (80-99); MONOCYTES % (AUTO) 10.2 % (1.0-10.0); NEUTROPHILS % (AUTO) 69.7 % (45.0-75.0); PLATELET COUNT 323 K/UL (150-450); RED BLOOD COUNT 4.15 M/UL (4.70-6.10); RED CELL DISTRIBUTION WIDTH 18.5 % (11.6-14.8); WHITE BLOOD COUNT 11.5 K/UL (4.8-10.8)
[2020-02-16 05:54] LABS: ANION GAP 7 mmol/L (5-15); BLOOD UREA NITROGEN 10 mg/dL (7-18); CALCIUM 8.7 MG/DL (8.5-10.1); CARBON DIOXIDE 27 MMOL/L (21-32); CHLORIDE 105 MMOL/L (98-107); CREATININE 0.9 MG/DL (0.55-1.30); POTASSIUM 3.5 MMOL/L (3.5-5.1); SODIUM 139 MMOL/L (136-145)
[2020-02-16] MEDS: Ampicillin/Sulbactam Sod 3 GM in NS 110 ML IVPB SCH (05:58)
--- NOTE | 2020-02-16 06:15 | NUR ---
NURSE NOTES: No acute distress noted. Removed catheter from BCIR ileostomy. Two suture removal sites are clean. Pt is aware of going to start self-intubation. Explain to call RN to assist when intubation. Will continue to follow up. 12 hrs output Urine: 500ml Ileostomy: 520ml
--- NOTE | 2020-02-16 06:44 | NUR ---
NURSE HAND-OFF: Important Events on Shift: Removal catheter from BCIR ileostomy, pain medication x1, Ativan x1 Patient Status: [stable] Diet: [BCIR] Pending Orders: [] Pending Results/Labs:[] Pending MD notification:[] Latest Vital Signs: Temperature 98.3 , Pulse 81 , B/P 118 /81 , Respiratory Rate 18 , O2 SAT 99 , Room Air, O2 Flow Rate 2.0 . Vital Sign Comment: [] Latest Wagoner Fall Score: 35 Fall Risk: Medium Risk Safety Measures: Call light Within Reach, Bed Alarm Zone 1, Side Rails Side Rails x2, Bed position Low and Locked. Fall Precautions: Door Sign Patient Fall Education
--- NOTE | 2020-02-16 07:15 | NUR ---
NURSE NOTES: Assist pt's self-intubation after breakfast. Output: 50ml greenish.
--- NOTE | 2020-02-16 07:30 | NUR ---
HAND-OFF: Report given to JESSICA Cosby. Round is made.
--- NOTE | 2020-02-16 07:30 | NUR ---
NURSE NOTES: Received report from Gho RN. Patient is awake and oriented, in no distress, denies pain, ALEX PICC running antibiotic, will remove PICC as ordered. Patient is self intubating, pending discharge today. Patient tolerating diet well. Updated on plan of care. Side rails upx2, bed low and locked, call light within reach.
[2020-02-16 08:00] VITALS: BP 143/88
[2020-02-16 08:59] VITALS: BP 143/88
[2020-02-16] MEDS: Sertraline 100mg tab ORAL SCH (08:59)
[2020-02-16] MEDS: Lisinopril 20mg tab ORAL SCH (08:59)
--- NOTE | 2020-02-16 09:05 | NUR ---
NURSE NOTES: ALEX PICC removed per order, patient tolerated well, no bleeding noted.
[2020-02-16] MEDS ORDERED: LISINOPRIL20 MG ORAL (09:26)
--- NOTE | 2020-02-16 09:30 | General Progress Note ---
Progress Note Progress Note AVSS Did well andj Iv antibiotics stopped, BCIR ileo catheter removed. He has self-intubated without difficulty with 30Fr Cristina catheter Stoma healing nicely Urine 1100 BCIR ileo 1370WBC down 11,500 Hgb 10 Imp: Doing well Plan: Discharge f/u with PMD re leukocytosis present on admission, now improved and re peat iron panel, ferritin and CBC (patient given copy of his labs) - received 1000mg Venofer IV Rx - none Instructions/limitations/supplies provided/discussed F/U 02/15 and Herber Millan MD Feb 16, 2020 09:30
[2020-02-16] MEDS ORDERED: Tubing IV Secondary IV ONE (11:04)
--- NOTE | 2020-02-16 11:07 | NUR ---
NURSE NOTES: Patient discharged without distress. All belongings sent with patient, home medications returned to patient. Discharge education provided and reviewed, patient verbalized understanding. Patient escorted off unit.
--- NOTE | 2020-02-18 15:01 | Discharge Summary ---
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 The patient had a past history of ulcerative colitis in May 2013 in [place]. He underwent proctocolectomy with creation of a Sood continent intestinal reservoir. He required revision of the Sood pouch valve and access segment in 2017 because of difficulty with intubation as well as incontinence. For the past year it was getting rapidly progressively worse. The patient was barely able to get his smallest catheter 24-Senegalese into his pouch instead of his usual 30-Senegalese catheter. He had bleeding and pain during intubation. He has severe stoma stenosis with hypertrophic scar around the stoma. He also complained of intermittent incontinence of stool. He was scheduled to be admitted, undergo diagnostic Sood pouch endoscopy, bowel prep with intravenous hydration, and preparation for surgery. Procedures s/p 02/11/[address] Guerrier Continent ileostomy pouch endoscopy s/p 02/12/[address] Guerrier Revision of Sood continent ileostomy stoma stenosis in depth Hospital Course patient undergone on 02/10 Sood diagnostic continent ileostomy pouch endoscopy , which revealed malfunctioning Sood continent ileostomy with a severe stomal stenosis bowel preparation was done , and patient subsequently undergone on 02/11 re vision of Sood continent ileostomy stoma stenosis in depth patient tolerated procedure well postoperatively pain management was addressed intake and output were closely monitored patient started on BCIR low residue diet patient was continued on IV hydration and IV antibiotic pain management was addressed with PHARMACY TECHNICIAN TRAINEE Dilaudid; basal infusion was discontinued after 24 hours continuous drainage of Sood pouch was maintained on 02/13 PHARMACY TECHNICIAN TRAINEE was discontinued, and analgesic changed to oral IV antibiotic continued indwelling Sood pouch catheter was maintained stoma was healing nicely patient received IV Venofer indwelling BCIR pouch catheter to drainage was continued on 02/15 IV antibiotics stopped, and BCIR ileal catheter was removed patient self intubated without difficulty with a 30 [place]e Cristina catheter patient was stable for discharge instruction/limitations/supplies provided/discussed patient follow-up in the office on 02/15 and as needed FINAL DIAGNOSES 1. Sood continent ileostomy severe stoma stenosis. 2. History of ulcerative colitis. 3. Status post multiple abdominal operations. 3.1. Proctocolectomy with creation of Sood continent ileostomy in May 2013 in [place]. 3.2. Repair of incisional hernia in 2016. 3.3. Laparotomy with revision of Sood pouch valve and access segment and stoma performed in [place] in March 2017. 3.4. Cholecystectomy in 2018. 4. S/P Revision of Sood continent ileostomy stoma stenosis in depth. Discharge Medications Continued Medications: Esomeprazole Magnesium (Nexium) 20 Mg Capsule.dr 20 MG ORAL DAILY for GERD, CAP Hydroxyzine Hcl (Hydroxyzine Hcl) 25 Mg Tablet 25 MG PO QID PRN for Itching, TAB Lisinopril (Lisinopril*) 20 Mg Tablet 20 MG ORAL DAILY for Hypertension, TAB Oxycodone HCl/Acetaminophen (Percocet 10-325 mg Tablet) 1 Each Tablet 1 TAB ORAL Q8H PRN for For Pain, #10 TAB 0 Refills Sertraline Hcl* (Zoloft*) 100 Mg Tablet 200 MG ORAL DAILY for Depression, TAB Discharge Condition Upon Discharge: stable Discharge Vital Signs Last Vital Signs Date Time Temp Pulse Resp B/P (MAP) Pulse Ox O2 Delivery O2 Flow Rate FiO2 02/16/20 09:00 Room Air 02/16/20 08:59 143/88 02/16/20 08:00 98.2 93 18 100 02/14/20 08:00 21 02/12/20 20:42 2.0 Discharge Disposition Patient was discharged home Discharge Instructions Discharge Instructions Special Instructions I have been assigned to complete a D/C Summary on this account. I was not involved in the patient management Polly Adkins NP Feb 18, 2020 15:01
== END 2020-02-16 11:05 | disposition home or self-care (01) | DRG 349 ==
LOC: 3E 09:11
PROC: 0DJD8ZZ Inspection of Lower Intestinal Tract, Via Natural or Artificial Opening Endoscopic (ICD-10-PCS; principal; 2020-02-11 13:12)
PROC: 02HV33Z Insertion of Infusion Device into Superior Vena Cava, Percutaneous Approach (ICD-10-PCS; principal; 2020-02-11 13:12)
PROC: 0WQFXZ2 Repair Abdominal Wall, Stoma, External Approach (ICD-10-PCS; 2020-02-12)
DX: K94.13 Enterostomy malfunction (principal); I10 Essential (primary) hypertension; Y83.3 Surgical operation with formation of external stoma as the cause of abnormal reaction of the patient, or of later complication, without mention of misadventure at the time of the procedure; Z90.49 Acquired absence of other specified parts of digestive tract; Z87.19 Personal history of other diseases of the digestive system
CPT/HCPCS: 36415; 36573; 71045; 76937; 80048; 80053; 81001; 82607; 82728; 82746; 83540; 83550; 85025; 85610; 85730; 86850; 86900; 86901; 93005; 93306; 94003; 94150; J2250; J2405; U0002